=== PATIENT | female | born 1980 | race American Indian/Alaskan Native ===

== ENCOUNTER 2018-11-16 14:09 | Emergency (ER) | payer OTHER ==
[2018-11-16 14:14] VITALS: BP 118/79
--- NOTE | 2018-11-16 14:25 | Emergency Department Report ---
Chief Complaint: Abdominal Pain Stated Complaint: RT SIDE PAIN Time Seen by Provider: 11/16/18 14:24 - HPI History of Present Illness: r flank pain hx stones nausea lmp 11/08 rx none pcp none pmh/psh renal stent k stone vss nad mse completed - Exam Vital Signs: Vital Signs 11/16/18 14:13 Temperature 98.4 F Pulse Rate 104 H Respiratory 16 Rate Blood Pressure 118/79 [Right] O2 Sat by Pulse 99 Oximetry MSE screening note: Focused history and physical exam performed. Due to findings the following was ordered: ED Disposition for MSE Condition: Stable Instructions: Abdominal Pain (ED)
[2018-11-16 14:56] LABS: HCG Qualitative,Urine Negative (Negative)
[2018-11-16] MEDS ORDERED: ZOFRAN IV ONE (14:58)
[2018-11-16] MEDS ORDERED: TORADOL IV ONE (14:58)
[2018-11-16] MEDS ORDERED: NACL 0.9% 1000 ML 1,000 ML IV ONE (14:58)
[2018-11-16 15:00] LABS: Bilirubin,Urine NEG (Negative); Blood,Urine NEG (Negative); Color,Urine Yellow (Yellow); Mucus,Urine FEW /HPF; Protein,Urine <15 mg/dL mg/dL (Negative); WBC,Urine < 1.0 /HPF (0.0-6.0)
[2018-11-16 15:01] LABS: Basophils # (Auto) 0.1 K/mm3 (0.0-0.1); Basophils % (Auto) 0.8 % (0.0-1.8); Eosinophils # (Auto) 0.2 K/mm3 (0.0-0.4); Eosinophils % (Auto) 2.7 % (0.0-4.3); Lymphocytes # (Auto) 2.9 K/mm3 (1.2-5.4); Lymphocytes % (Auto) 36.6 % (13.4-35.0); Mean Corpuscular HGB Conc 34 % (30-34); Mean Corpuscular Volume 96 fl (79-97); Monocytes # (Auto) 0.5 K/mm3 (0.0-0.8); Monocytes % (Auto) 6.5 % (0.0-7.3); Platelet Count 319 K/mm3 (140-440); Red Blood Count 3.97 M/mm3 (3.65-5.03); Red Cell Distribution Width 13.6 % (13.2-15.2)
[2018-11-16 15:08] LABS: BUN/Creatinine Ratio 13; Blood Urea Nitrogen 9 mg/dL (7-17); Hemolysis Index 4
[2018-11-16] MEDS ORDERED: MORPHINE IV ONE (16:50)
--- NOTE | 2018-11-16 16:55 | Cat Scan Report ---
PROCEDURE: CT ABDOMEN PELVIS WO CON TECHNIQUE: CT examination of the abdomen without IV contrast CT examination of the pelvis without IV contrast HISTORY: right flank pain COMPARISONS: None FINDINGS: Lack of IV and oral contrast limits the examination. Examination is further limited by paucity of int ra-abdominal fat. No acute lung base finding. No acute fracture. Normal noncontrast appearance of the liver, gallbladde r, adrenals, pancreas, and spleen. Normal caliber abdominal aorta and IVC. Normal-appearing right kidney. No right hydronephrosis or right renal calculus. Obscured right ureter by adjacent structures. 3 mm nonobstructing left renal calculus. No left hydronephrosis. Left ureter obscured by adjacent str uctures. Intact anterior abdominal wall without evidence of hernia. No retroperitoneal adenopathy. No evidence of mesenteric mass. Normal-appearing stomach and duodenum. No small bowel distention in the abdomen and pelvis. No pelvic free fluid. Normal-appearing urinary bladder, anteverted uterus, and adnexa. Normal-appeari ng rectum and sigmoid colon. No gross ascites, free air, or colonic distention. Normal-appearing cecu m, terminal ileum, and retrocecal appendix. Prominent stool in the ascending and transverse colon may reflect proximal constipation. IMPRESSION: Prominent stool in ascending and transverse colon may reflect right colonic constipation Lack of IV contrast, oral contrast, and paucity of intra-abdominal fat limits the examination 3 mm nonobstructing left renal calculus. No evidence of right calculus or hydronephrosis in the visib le portion of the urinary tract This document is electronically signed by Dayron East MD., November 16 2018 04:53:45 PM ET
--- NOTE | 2018-11-16 17:24 | Emergency Department Report ---
ED Abdominal Pain HPI - General Chief Complaint: Abdominal Pain Stated Complaint: RT SIDE PAIN Time Seen by Provider: 11/16/18 14:24 Source: patient Mode of arrival: Ambulatory Limitations: No Limitations - History of Present Illness Initial Comments: Patient is a 38 year F Miller female who is complaining of severe right-sided flank pain that began earlier today. Patient has mild dysuria as well. Patient has a history of kidney stones and has had to undergo lithotripsy for renal stents several times. Patient has had some nausea vomiting. Patient states the pain is 8 out of 10 in severity. She denies any fever at this time. MD Complaint: flank pain Severity scale (0 -10): 5 - Related Data Previous Rx's Medication Instructions Recorded Last Taken Type Ketorolac [Toradol] 10 mg PO Q6H PRN #12 tablet 11/16/18 Unknown Rx Ondansetron [Zofran Odt] 4 mg PO Q8HR #10 tab.rapdis 11/16/18 Unknown Rx traMADol [Ultram] 50 mg PO Q6HR PRN #12 tablet 11/16/18 Unknown Rx Allergies Allergy/AdvReac Type Severity Reaction Status Date / Time No Known Allergies Allergy Unverified 11/16/18 14:23 ED Review of Systems ROS: Stated complaint: RT SIDE PAIN Other details as noted in HPI Comment: All other systems reviewed and negative ED Past Medical Hx - Past Medical History Previous Medical History?: Yes Additional medical history: kidney stones - Surgical History Past Surgical History?: Yes Additional Surgical History: lithotripsy. renal stents - Social History Smoking Status: Current Every Day Smoker Substance Use Type: Alcohol - Medications Home Medications: Home Medications Medication Instructions Recorded Confirmed Last Taken Type Ketorolac [Toradol] 10 mg PO Q6H PRN #12 tablet 11/16/18 Unknown Rx Ondansetron [Zofran Odt] 4 mg PO Q8HR #10 tab.rapdis 11/16/18 Unknown Rx traMADol [Ultram] 50 mg PO Q6HR PRN #12 tablet 11/16/18 Unknown Rx ED Physical Exam - General Limitations: No Limitations General appearance: alert, in no apparent distress (but uncomfortable secondary to pain) - Head Head exam: Present: atraumatic, normocephalic - Eye Eye exam: Present: normal appearance, PERRL, EOMI - ENT ENT exam: Present: mucous membranes moist - Neck Neck exam: Present: normal inspection - Respiratory Respiratory exam: Present: normal lung sounds bilaterally. Absent: respiratory distress, wheezes, rales, rhonchi, stridor - Cardiovascular Cardiovascular Exam: Present: regular rate, normal rhythm. Absent: systolic murmur, diastolic murmur, rubs, gallop - GI/Abdominal GI/Abdominal exam: Present: soft, tenderness (right flank), normal bowel sounds. Absent: distended, guarding, rebound, rigid - Extremities Exam Extremities exam: Present: normal inspection - Back Exam Back exam: Present: normal inspection, CVA tenderness (R) - Neurological Exam Neurological exam: Present: alert, oriented X3 - Psychiatric Psychiatric exam: Present: normal affect, normal mood - Skin Skin exam: Present: warm, dry, intact, normal color. Absent: rash ED Course Vital Signs 11/16/18 11/16/18 14:13 15:26 Temperature 98.4 F Pulse Rate 104 H Respiratory 16 18 Rate Blood Pressure 118/79 [Right] O2 Sat by Pulse 99 Oximetry ED Medical Decision Making - Lab Data Result diagrams: 11/16/18 14:36 11/16/18 14:36 Lab Results 11/16/18 11/16/18 11/16/18 Range/Units 14:36 14:36 14:47 WBC 7.9 (4.5-11.0) K/mm3 RBC 3.97 (3.65-5.03) M/mm3 Hgb 13.0 (10.1-14.3) gm/dl Hct 38.0 (30.3-42.9) % MCV 96 (79-97) fl MCH 33 H (28-32) pg MCHC 34 (30-34) % RDW 13.6 (13.2-15.2) % Plt Count 319 (140-440) K/mm3 Lymph % (Auto) 36.6 H (13.4-35.0) % [place] % (Auto) 6.5 (0.0-7.3) % Eos % (Auto) 2.7 (0.0-4.3) % Baso % (Auto) 0.8 (0.0-1.8) % Lymph # 2.9 (1.2-5.4) K/mm3 [place] # 0.5 (0.0-0.8) K/mm3 Eos # 0.2 (0.0-0.4) K/mm3 Baso # 0.1 (0.0-0.1) K/mm3 Seg Neutrophils % 53.4 (40.0-70.0) % Seg Neutrophils # 4.2 (1.8-7.7) K/mm3 Sodium 138 (137-145) mmol/L Potassium 4.7 (3.6-5.0) mmol/L Chloride 100.5 (98-107) mmol/L Carbon Dioxide 26 (22-30) mmol/L Anion Gap 16 mmol/L BUN 9 (7-17) mg/dL Creatinine 0.7 (0.7-1.2) mg/dL Estimated GFR > 60 ml/min BUN/Creatinine Ratio 13 % Glucose 92 (65-100) mg/dL Calcium 10.0 (8.4-10.2) mg/dL Urine Color Yellow (Yellow) Urine Turbidity Clear (Clear) Urine pH 6.0 (5.0-7.0) Ur Specific [place] 1.026 (1.003-1.030) Urine Protein <15 mg/dl (Negative) mg/dL Urine Glucose (UA) Neg (Negative) mg/dL Urine Ketones Tr (Negative) mg/dL Urine Blood Neg (Negative) Urine Nitrite Neg (Negative) Ur Reducing Substances Not Reportable Urine Bilirubin Neg (Negative) Urine Ictotest Not Reportable Urine Urobilinogen 2.0 (<2.0) mg/dL Ur Leukocyte Esterase Neg (Negative) Urine WBC (Auto) < 1.0 (0.0-6.0) /HPF Urine RBC (Auto) 12.0 (0.0-6.0) /HPF U Epithel Cells (Auto) 3.0 (0-13.0) /HPF Urine Mucus Few /HPF Urine HCG, Qual Negative (Negative) - Radiology Data [facility] [address] [place] [address] Cat Scan Report Signed Patient: JENY ARIAS MR#: [id number] : 1980 Acct:[id number] Age/Sex: 38 / F ADM Date: 11/16/18 Loc: ED Attending Dr: Ordering Physician: ARTHUR RED MD Date of Service: 11/16/18 Procedure(s): CT abdomen pelvis wo con Accession Number(s): [id number] cc: ARTHUR RED MD PROCEDURE: CT ABDOMEN PELVIS WO CON TECHNIQUE: CT examination of the abdomen without IV contrast CT examination of the pelvis without IV contrast HISTORY: right flank pain COMPARISONS: None FINDINGS: Lack of IV and oral contrast limits the examination. Examination is further limited by paucity of intra-abdominal fat. No acute lung base finding. No acute fracture. Normal noncontrast appearance of the liver, gallbladder, adrenals, pancreas, and spleen. Normal caliber abdominal aorta and IVC. Normal-appearing right kidney. No right hydronephrosis or right renal calculus. Obscured right ureter by adjacent structures. 3 mm nonobstructing left renal calculus. No left hydronephrosis. Left ureter obscured by adjacent structures. Intact anterior abdominal wall without evidence of hernia. No retroperitoneal adenopathy. No evidence of mesenteric mass. Normal-appearing stomach and duodenum. No small bowel distention in the abdomen and pelvis. No pelvic free fluid. Normal-appearing urinary bladder, anteverted uterus, and adnexa. Normal- appearing rectum and sigmoid colon. No gross ascites, free air, or colonic distention. Normal- appearing cecum, terminal ileum, and retrocecal appendix. Prominent stool in the ascending and transverse colon may reflect proximal constipation. IMPRESSION: Prominent stool in ascending and transverse colon may reflect right colonic constipation Lack of IV contrast, oral contrast, and paucity of intra-abdominal fat limits the examination 3 mm nonobstructing left renal calculus. No evidence of right calculus or hydronephrosis in the visible portion of the urinary tract This document is electronically signed by Dayron East MD., November 16 2018 04:53:45 PM ET Transcribed By: CASEY Dictated By: DAYRON EAST MD Electronically Authenticated By: DAYRON EAST MD Signed Date/Time: 11/16/181654 DD/ 54 TD/TT: 11/16/181554 - Medical Decision Making Patient does have a mild amount of hematuria present. No obstructing stone has been found. Patient's pain is resolving and she may have passed a stone prior to arrival. Patient be discharged home. Critical care attestation.: If time is entered above; I have spent that time in minutes in the direct care of this critically ill patient, excluding procedure time. ED Disposition Clinical Impression: Hematuria Qualifiers: Hematuria type: benign essential microscopic Qualified Code(s): R31.1 - Benign essential microscopic hematuria Disposition: - TO HOME OR SELFCARE Is pt being admited?: No Does the pt Need Aspirin: No Condition: Stable Instructions: Acute Hematuria (ED) Referrals: AMOL COLUNGA MD [Primary Care Provider] - 3-5 Days Time of Disposition: 17:24
== END 2018-11-16 17:43 | disposition home or self-care (01) ==
LOC: ED 14:09
DX: R30.0 Dysuria (principal); R11.2 Nausea with vomiting, unspecified; F17.200 Nicotine dependence, unspecified, uncomplicated; Z87.442 Personal history of urinary calculi
CPT/HCPCS: 36415; 74176; 80048; 81001; 81025; 85025; 96361; 96374; 96375; 99284; J1885; J2270; J2405; J7030

== ENCOUNTER 2020-02-21 10:57 | Emergency (ER) | payer SELFPAY ==
--- NOTE | 2020-02-21 12:18 | Event Note ---
ED Screening Note ED Screening Note: right lower abd pain began yesterday states hx of ovarian cysts but they have not given her problems in the past states she has pressure at end of urination no n/v/d no fever constipation x2 days PMHx ovarian cysts, nephrolithiasis PSHx: stone removal, x3 LNMP: 02/04/2020 This initial assessment/diagnostic orders/clinical plan/treatment(s) is/are subject to change based on patients health status, clinical progression and re- assessment by fellow clinical providers in the ED. Further treatment and workup at subsequent clinical providers discretion. Patient/guardian urged not to elope from the ED as their condition may be serious if not clinically assessed and managed. Initial orders include: labs, UA
[2020-02-21 14:15] LABS: Basophils # (Auto) 0.1 K/mm3 (0.0-0.1); Basophils % (Auto) 0.9 % (0.0-1.8); Eosinophils # (Auto) 0.5 K/mm3 (0.0-0.4); Eosinophils % (Auto) 4.9 % (0.0-4.3); Hematocrit 37.1 % (30.3-42.9); Hemoglobin 12.4 gm/dl (10.1-14.3); Lymphocytes # (Auto) 2.7 K/mm3 (1.2-5.4); Lymphocytes % (Auto) 27.7 % (13.4-35.0); Mean Corpuscular HGB Conc 34 % (30-34); Mean Corpuscular Volume 97 fl (79-97); Monocytes # (Auto) 0.6 K/mm3 (0.0-0.8); Monocytes % (Auto) 6.3 % (0.0-7.3); Platelet Count 292 K/mm3 (140-440); Red Blood Count 3.82 M/mm3 (3.65-5.03); Red Cell Distribution Width 13.9 % (13.2-15.2)
[2020-02-21 14:25] LABS: Alanine Aminotransferase 6 units/L (7-56); Albumin 4.4 g/dL (3.9-5); BUN/Creatinine Ratio 12; Blood Urea Nitrogen 7 mg/dL (7-17); Calcium 9.5 mg/dL (8.4-10.2); Hemolysis Index 10
[2020-02-21 15:44] LABS: Bilirubin,Urine NEG (Negative); Blood,Urine SM (Negative); Color,Urine Yellow (Yellow); Mucus,Urine FEW /HPF; Protein,Urine <15 mg/dL mg/dL (Negative); Urobilinogen,Urine < 2.0 mg/dL (<2.0)
[2020-02-21] MEDS ORDERED: MORPHINE 4 MG/1 ML INJ IV STA (16:01)
[2020-02-21] MEDS ORDERED: ONDANSETRON 4 MG/2 ML INJ IV STA (16:01)
[2020-02-21] MEDS ORDERED: SODIUM CHLORIDE 0.9% 1000 ML 1,000 ML IV ONE (16:01)
--- NOTE | 2020-02-21 16:10 | Emergency Department Report ---
<SARAH MADRIGAL - Last Filed: 02/21/20 16:05> ED Abdominal Pain HPI - General Chief Complaint: Abdominal Pain Stated Complaint: RT SIDE ABD PAIN Time Seen by Provider: 02/21/20 12:15 Source: patient Mode of arrival: Ambulatory Limitations: No Limitations - Related Data Previous Rx's Medication Instructions Recorded Last Taken Type Ketorolac [Toradol] 10 mg PO Q6H PRN #12 tablet 11/16/18 Unknown Rx traMADoL [Ultram] 50 mg PO Q6HR PRN #12 tablet 11/16/18 Unknown Rx Ketorolac [Toradol] 10 mg PO Q6H PRN #14 tablet 02/21/20 Unknown Rx Ondansetron [Zofran ODT TAB] 4 mg PO Q6HR PRN #15 tab.rapdis 02/21/20 Unknown Rx Allergies Allergy/AdvReac Type Severity Reaction Status Date / Time No Known Allergies Allergy Unverified 11/16/18 14:23 ED Review of Systems Comment: All other systems reviewed and negative ED Past Medical Hx - Past Medical History Previous Medical History?: Yes Additional medical history: kidney stones - Surgical History Past Surgical History?: Yes Additional Surgical History: lithotripsy. renal stents. C section - Social History Smoking Status: Never Smoker Substance Use Type: None - Medications Home Medications: Home Medications Medication Instructions Recorded Confirmed Last Taken Type Ketorolac [Toradol] 10 mg PO Q6H PRN #12 tablet 11/16/18 Unknown Rx traMADoL [Ultram] 50 mg PO Q6HR PRN #12 tablet 11/16/18 Unknown Rx Ketorolac [Toradol] 10 mg PO Q6H PRN #14 tablet 02/21/20 Unknown Rx Ondansetron [Zofran ODT TAB] 4 mg PO Q6HR PRN #15 tab.rapdis 02/21/20 Unknown Rx ED Physical Exam - General Limitations: No Limitations General appearance: alert, in no apparent distress - Head Head exam: Present: atraumatic, normocephalic - Eye Eye exam: Present: normal appearance, PERRL, EOMI Pupils: Present: normal accommodation - ENT ENT exam: Present: mucous membranes moist - Neck Neck exam: Present: normal inspection - Respiratory Respiratory exam: Present: normal lung sounds bilaterally. Absent: respiratory distress - Cardiovascular Cardiovascular Exam: Present: regular rate, normal rhythm. Absent: systolic murmur, diastolic murmur, rubs, gallop - GI/Abdominal GI/Abdominal exam: Present: soft, normal bowel sounds - Extremities Exam Extremities exam: Present: normal inspection - Back Exam Back exam: Present: normal inspection - Neurological Exam Neurological exam: Present: alert, oriented X3 - Psychiatric Psychiatric exam: Present: normal affect, normal mood - Skin Skin exam: Present: warm, dry, intact, normal color. Absent: rash ED Medical Decision Making - Lab Data Result diagrams: 02/21/20 13:34 02/21/20 13:34 Lab Results 02/21/20 02/21/20 02/21/20 Range/Units 13:34 13:34 13:34 WBC 9.8 (4.5-11.0) K/mm3 RBC 3.82 (3.65-5.03) M/mm3 Hgb 12.4 (10.1-14.3) gm/dl Hct 37.1 (30.3-42.9) % MCV 97 (79-97) fl MCH 33 H (28-32) pg MCHC 34 (30-34) % RDW 13.9 (13.2-15.2) % Plt Count 292 (140-440) K/mm3 Lymph % (Auto) 27.7 (13.4-35.0) % [place] % (Auto) 6.3 (0.0-7.3) % Eos % (Auto) 4.9 H (0.0-4.3) % Baso % (Auto) 0.9 (0.0-1.8) % Lymph # 2.7 (1.2-5.4) K/mm3 [place] # 0.6 (0.0-0.8) K/mm3 Eos # 0.5 H (0.0-0.4) K/mm3 Baso # 0.1 (0.0-0.1) K/mm3 Seg Neutrophils % 60.2 (40.0-70.0) % Seg Neutrophils # 5.9 (1.8-7.7) K/mm3 Sodium 136 L (137-145) mmol/L Potassium 3.9 (3.6-5.0) mmol/L Chloride 102.1 (98-107) mmol/L Carbon Dioxide 21 L (22-30) mmol/L Anion Gap 17 mmol/L BUN 7 (7-17) mg/dL Creatinine 0.6 L (0.7-1.2) mg/dL Estimated GFR > 60 ml/min BUN/Creatinine Ratio 12 % Glucose 92 (65-100) mg/dL Calcium 9.5 (8.4-10.2) mg/dL Total Bilirubin 0.20 (0.1-1.2) mg/dL AST 12 (5-40) units/L ALT 6 L (7-56) units/L Alkaline Phosphatase 55 (35-129) units/L Total Protein 7.8 (6.3-8.2) g/dL Albumin 4.4 (3.9-5) g/dL Albumin/Globulin Ratio 1.3 % Lipase 18 (13-60) units/L HCG, Qual Negative (Negative) Urine Color (Yellow) Urine Turbidity (Clear) Urine pH (5.0-7.0) Ur Specific [place] (1.003-1.030) Urine Protein (Negative) mg/dL Urine Glucose (UA) (Negative) mg/dL Urine Ketones (Negative) mg/dL Urine Blood (Negative) Urine Nitrite (Negative) Urine Bilirubin (Negative) Urine Urobilinogen (<2.0) mg/dL Ur Leukocyte Esterase (Negative) Urine WBC (Auto) (0.0-6.0) /HPF Urine RBC (Auto) (0.0-6.0) /HPF U Epithel Cells (Auto) (0-13.0) /HPF Urine Mucus /HPF 07/10/20 Range/Units Unknown WBC (4.5-11.0) K/mm3 RBC (3.65-5.03) M/mm3 Hgb (10.1-14.3) gm/dl Hct (30.3-42.9) % MCV (79-97) fl MCH (28-32) pg MCHC (30-34) % RDW (13.2-15.2) % Plt Count (140-440) K/mm3 Lymph % (Auto) (13.4-35.0) % [place] % (Auto) (0.0-7.3) % Eos % (Auto) (0.0-4.3) % Baso % (Auto) (0.0-1.8) % Lymph # (1.2-5.4) K/mm3 [place] # (0.0-0.8) K/mm3 Eos # (0.0-0.4) K/mm3 Baso # (0.0-0.1) K/mm3 Seg Neutrophils % (40.0-70.0) % Seg Neutrophils # (1.8-7.7) K/mm3 Sodium (137-145) mmol/L Potassium (3.6-5.0) mmol/L Chloride (98-107) mmol/L Carbon Dioxide (22-30) mmol/L Anion Gap mmol/L BUN (7-17) mg/dL Creatinine (0.7-1.2) mg/dL Estimated GFR ml/min BUN/Creatinine Ratio % Glucose (65-100) mg/dL Calcium (8.4-10.2) mg/dL Total Bilirubin (0.1-1.2) mg/dL AST (5-40) units/L ALT (7-56) units/L Alkaline Phosphatase (35-129) units/L Total Protein (6.3-8.2) g/dL Albumin (3.9-5) g/dL Albumin/Globulin Ratio % Lipase (13-60) units/L HCG, Qual (Negative) Urine Color Yellow (Yellow) Urine Turbidity Clear (Clear) Urine pH 6.0 (5.0-7.0) Ur Specific [place] 1.017 (1.003-1.030) Urine Protein <15 mg/dl (Negative) mg/dL Urine Glucose (UA) Neg (Negative) mg/dL Urine Ketones Neg (Negative) mg/dL Urine Blood Sm (Negative) Urine Nitrite Neg (Negative) Urine Bilirubin Neg (Negative) Urine Urobilinogen < 2.0 (<2.0) mg/dL Ur Leukocyte Esterase Neg (Negative) Urine WBC (Auto) 1.0 (0.0-6.0) /HPF Urine RBC (Auto) 4.0 (0.0-6.0) /HPF U Epithel Cells (Auto) 4.0 (0-13.0) /HPF Urine Mucus Few /HPF - Radiology Data Radiology results: report reviewed [facility] [address] [place] [address] Cat Scan Report Signed Patient: JENY ARIAS MR#: [id number] : 1980 Acct:[id number] Age/Sex: 40 / F ADM Date: 02/21/20 Loc: ED Attending Dr: Ordering Physician: ZULEIKA MULLINS Date of Service: 02/21/20 Procedure(s): CT abdomen pelvis w con Accession Number(s): [id number] cc: ZULEIKA MULLINS CT ABDOMEN AND PELVIS WITH CONTRAST HISTORY: Right lower abdominal pain. COMPARISON: Prior CT on 11/16/2018. TECHNIQUE: Routine abdominal and pelvic CT exam performed following intravenous contrast administration. The patient received 100 mL Omnip[address] 350. All CT scans at this location are performed using CT dose reduction for ALARA by means of automated exposure cont rol. FINDINGS: CT ABDOMEN: Lung Bases: No significant abnormality. Liver: No significant abnormality. Biliary: No significant abnormality. Spleen: No significant abnormality. Unenlarged. Pancreas: No significant abnormality. Adrenals: No significant abnormality. Kidneys: There are some small nonobstructing stones in left kidney measuring up to 3 mm. There is no hydronephrosis. Kidneys otherwise appear normal. Lymphatics: No lymphadenopathy. Vasculature: No significant abnormality. Bowel/Peritoneum: No significant abnormality. No free air. No free fluid. Normal appendix. CT PELVIC: : There is a 3.5 cm right ovarian cyst. Uterus and ovaries otherwise appear normal. Lymphatics: No lymphadenopathy. Osseous Structures: No aggressive appearing osseous lesions. Additional Findings: None IMPRESSION: 1. No acute findings. 2. A 3.5 cm right ovarian cyst is noted. 3. Nonobstructing left intrarenal stones. Signer Name: Jason Tristan MD Signed: 02/21/2020 5:19 PM Workstation Name: [id number] Transcribed By: LAINA Dictated By: Jason Tristan MD Electronically Authenticated By: Jason Tristan MD Signed Date/Time: 02/21/201718 DD/ 15 TD/TT: ED Disposition Clinical Impression: Right ovarian cyst Abdominal pain Qualifiers: Abdominal location: lower abdomen, unspecified Qualified Code(s): R10.30 - Lower abdominal pain, unspecified Disposition: DC-01 TO HOME OR SELFCARE Condition: Stable Instructions: Abdominal Pain (ED), Ovarian Cyst (ED) Additional Instructions: Follow-up with your [facility] physician in 2 to 3 days for reevaluation. Return to the ED immediately if symptoms get worse. Prescriptions: Ketorolac [Toradol] 10 mg PO Q6H PRN #14 tablet PRN Reason: Pain Ondansetron [Zofran ODT TAB] 4 mg PO Q6HR PRN #15 tab.rapdis PRN Reason: Nausea Referrals: [facility] [Provider Group] - 3-5 Days [facility] [Provider Group] - 3-5 Days [facility], [Primary Care Provider] - 3-5 Days Print Language: VIETNAMESE <JENNIFER YOUNG - Last Filed: 02/21/20 20:29> ED Review of Systems ROS: Stated complaint: RT SIDE ABD PAIN Other details as noted in HPI ED Course Vital Signs 02/21/20 02/21/20 02/21/20 11:00 16:24 17:56 Temperature 98.4 F Pulse Rate 93 H Respiratory 18 18 18 Rate Blood Pressure 120/75 Blood Pressure [Left] O2 Sat by Pulse 100 Oximetry 02/21/20 02/21/20 02/21/20 18:26 18:52 20:09 Temperature 98.4 F Pulse Rate 82 Respiratory 18 18 18 Rate Blood Pressure Blood Pressure 100/66 [Left] O2 Sat by Pulse 99 100 Oximetry ED Medical Decision Making - Lab Data Result diagrams: 02/21/20 13:34 02/21/20 13:34 - Radiology Data Findings [facility] [address] [place] [id number] Ultrasound Report Signed Patient: JENY ARIAS MR#: [id number] : 1980 Acct:[id number] Age/Sex: 40 / F ADM Date: 02/21/20 Loc: ED Attending Dr: Ordering Physician: ZULEIKA MULLINS Date of Service: 02/21/20 Procedure(s): US pelvic complete Accession Number(s): [id number] cc: ZULEIKA MULLINS ULTRASOUND PELVIS, COMPLETE INDICATION: Right lower quadrant pain COMPARISON: CT abdomen/pelvis performed earlier today.. FINDINGS: Uterus: No significant abnormality. Uterus measures 8.3 x 4.2 x 3.9 cm. No focal uterine mass noted. Endometrial echo complex measures 7mm. Right ovary: The right ovary contains a hypoechoic mass measuring 3.4 x 2.5 cm. There are numerous internal echoes and probable internal septations within the mass.. Left ovary: No significant abnormality. Left ovary has a normal appearance and size. Additional findings: There is no free fluid in the pelvis. Urinary bladder is unremarkable. IMPRESSION: 1. 3.4 cm complex mass within the right ovary. I suspect this is a hemorrhagic cyst based on appearance. The appearance does not suggest ovarian torsion. Short-term follow- up ultrasound is recommended to ensure mass resolves and/or regresses.. 2. The uterus and left ovary are unremarkable. Signer Name: Maria Antonia Richter MD Signed: 02/21/2020 8:09 PM Workstation Name: [id number] Transcribed By: Dictated By: Maria Antonia Richter MD Electronically Authenticated By: Maria Antonia Richter MD Signed Date/Time: 02/21/202008 DD/ 04 TD/TT: - Medical Decision Making The ultrasound report reviewed, the abdomen pelvis CT scan with contrast report was reviewed. Lab test results also reviewed. Patient treated for pain. Patient was discharged as per Teodoro Farzana Cristino's printed discharge instructions. Patient advised to follow-up with her [facility] physician in 3 to 5 days for reevaluation or return to the ED immediately if symptoms get worse. - Differential Diagnosis abdominal pain; Ovarian cyst, UTI; ; Fibroids; kidney stones Critical care attestation.: If time is entered above; I have spent that time in minutes in the direct care of this critically ill patient, excluding procedure time. ED Disposition Is pt being admited?: No Does the pt Need Aspirin: No Time of Disposition: 20:27
--- NOTE | 2020-02-21 17:23 | Cat Scan Report ---
CT ABDOMEN AND PELVIS WITH CONTRAST HISTORY: Right lower abdominal pain. COMPARISON: Prior CT on 11/16/2018. TECHNIQUE: Routine abdominal and pelvic CT exam performed following intravenous contrast administrat ion. The patient received 100 mL Omnip[address] 350. All CT scans at this location are performed using CT dose reduction for ALARA by means of automated exposure control. FINDINGS: CT ABDOMEN: Lung Bases: No significant abnormality. Liver: No significant abnormality. Biliary: No significant abnormality. Spleen: No significant abnormality. Unenlarged. Pancreas: No significant abnormality. Adrenals: No significant abnormality. Kidneys: There are some small nonobstructing stones in left kidney measuring up to 3 mm. There is no hydronephrosis. Kidneys otherwise appear normal. Lymphatics: No lymphadenopathy. Vasculature: No significant abnormality. Bowel/Peritoneum: No significant abnormality. No free air. No free fluid. Normal appendix. CT PELVIC: : There is a 3.5 cm right ovarian cyst. Uterus and ovaries otherwise appear normal. Lymphatics: No lymphadenopathy. Osseous Structures: No aggressive appearing osseous lesions. Additional Findings: None IMPRESSION: 1. No acute findings. 2. A 3.5 cm right ovarian cyst is noted. 3. Nonobstructing left intrarenal stones. Signer Name: Jason Tristan MD Signed: 02/21/2020 5:19 PM Workstation Name: [id number]
[2020-02-21] MEDS ORDERED: KETOROLAC 30 MG/1 ML INJ IV ONE (17:52)
[2020-02-21 20:11] VITALS: BP 100/66
--- NOTE | 2020-02-21 20:13 | Ultrasound Report ---
ULTRASOUND PELVIS, COMPLETE INDICATION: Right lower quadrant pain COMPARISON: CT abdomen/pelvis performed earlier today.. FINDINGS: Uterus: No significant abnormality. Uterus measures 8.3 x 4.2 x 3.9 cm. No focal uterine mass noted. Endometrial echo complex measures 7mm. Right ovary: The right ovary contains a hypoechoic mass measuring 3.4 x 2.5 cm. There are numerous in ternal echoes and probable internal septations within the mass.. Left ovary: No significant abnormality. Left ovary has a normal appearance and size. Additional findings: There is no free fluid in the pelvis. Urinary bladder is unremarkable. IMPRESSION: 1. 3.4 cm complex mass within the right ovary. I suspect this is a hemorrhagic cyst based on appearan ce. The appearance does not suggest ovarian torsion. Short-term follow-up ultrasound is recommended t o ensure mass resolves and/or regresses.. 2. The uterus and left ovary are unremarkable. Signer Name: Maria Antonia Richter MD Signed: 02/21/2020 8:09 PM Workstation Name: [id number]
[2020-02-21] MEDS ORDERED: MORPHINE 2 MG/1 ML INJ IV ONE (20:22)
[2020-02-21] MEDS ORDERED: diphenhydrAMINE 50 MG/ML VIAL IV ONE (20:22)
[2020-02-21] MEDS ORDERED: MORPHINE 2 MG/1 ML INJ ONE (20:25)
[2020-02-21] MEDS ORDERED: diphenhydrAMINE 50 MG/ML VIAL ONE (20:25)
== END 2020-02-21 20:35 | disposition home or self-care (01) ==
LOC: ED 10:57
DX: N83.291 Other ovarian cyst, right side (principal); Z98.890 Other specified postprocedural states; Z79.899 Other long term (current) drug therapy
CPT/HCPCS: 36415; 74177; 76856; 80053; 81001; 83690; 84703; 85025; 96374; 96375; 96376; 99284; J1200; J1885; J2270; J2405; J7030; Q9967

== ENCOUNTER 2021-01-05 10:37 | Emergency (ER) | payer SELFPAY ==
[2021-01-05 13:21] LABS: Basophils # (Auto) 0.1 K/mm3 (0.0-0.1); Basophils % (Auto) 1.1 % (0.0-1.8); Eosinophils # (Auto) 0.4 K/mm3 (0.0-0.4); Eosinophils % (Auto) 4.5 % (0.0-4.3); Hematocrit 35.7 % (30.3-42.9); Hemoglobin 12.3 gm/dl (10.1-14.3); Lymphocytes # (Auto) 2.9 K/mm3 (1.2-5.4); Lymphocytes % (Auto) 30.7 % (13.4-35.0); Mean Corpuscular HGB Conc 34 % (30-34); Mean Corpuscular Volume 97 fl (79-97); Monocytes # (Auto) 0.6 K/mm3 (0.0-0.8); Monocytes % (Auto) 6.7 % (0.0-7.3); Platelet Count 283 K/mm3 (140-440); Red Blood Count 3.68 M/mm3 (3.65-5.03); Red Cell Distribution Width 14.2 % (13.2-15.2)
[2021-01-05 13:43] LABS: Alanine Aminotransferase 7 units/L (7-56); Albumin 4.3 g/dL (3.9-5); Blood Urea Nitrogen 12 mg/dL (7-17); Calcium 9.2 mg/dL (8.4-10.2); Hemolysis Index 1
[2021-01-05 13:56] LABS: BUN/Creatinine Ratio 17
[2021-01-05] MEDS ORDERED: MORPHINE 4 MG/1 ML INJ IV ONE (14:47)
[2021-01-05] MEDS ORDERED: SODIUM CHLORIDE 0.9% 1000 ML 1,000 ML IV ONE (14:47)
[2021-01-05] MEDS ORDERED: ONDANSETRON 4 MG/2 ML INJ IV ONE (14:47)
--- NOTE | 2021-01-05 14:47 | Emergency Department Report ---
ED General Adult HPI - General Chief complaint: Abdominal Pain Stated complaint: POSS KIDNEY STONES Time Seen by Provider: 01/05/21 14:13 Source: patient Mode of arrival: Wheelchair Limitations: No Limitations - History of Present Illness Initial comments: 41-year-old -[place] female patient presents with complaints of sudden onset of right flank pain 2 days ago. Pain worsened today with nausea and vomiting per patient. She reports history of recurrent kidney stones that have required surgical intervention 8 times. She denies any hematemesis/coffee- ground emesis, chest pain, shortness of breath, fever/chills/sweats, urinary symptoms, or stool changes. No other past medical history per patient. She rates her current pain as a 10/10 in severity. -: Sudden Radiation: abdomen Severity scale (0 -10): 10 - Related Data Previous Rx's Medication Instructions Recorded Last Taken Type Acetaminophen/Codeine [Tylenol 1 tab PO Q6H PRN #15 tab 01/05/21 Unknown Rx /Codeine # 3 tab] Ondansetron [Zofran Odt] 4 mg PO Q8HR PRN #14 tab.rapdis 01/05/21 Unknown Rx Tamsulosin [Flomax] 0.4 mg PO QDAY PRN #7 cap 01/05/21 Unknown Rx Allergies Allergy/AdvReac Type Severity Reaction Status Date / Time No Known Allergies Allergy Unverified 11/16/18 14:23 ED Review of Systems ROS: Stated complaint: POSS KIDNEY STONES Other details as noted in HPI Constitutional: denies: chills, diaphoresis, fever, malaise Respiratory: denies: cough, shortness of breath Cardiovascular: denies: chest pain Gastrointestinal: as per HPI, nausea, vomiting Genitourinary: denies: urgency, dysuria, frequency, hematuria, discharge ED Past Medical Hx - Past Medical History Previous Medical History?: Yes Hx Kidney Stones: Yes Additional medical history: kidney stones - Surgical History Additional Surgical History: lithotripsy. renal stents. C section - Social History Smoking Status: Current Every Day Smoker Substance Use Type: None - Medications Home Medications: Home Medications Medication Instructions Recorded Confirmed Last Taken Type Acetaminophen/Codeine [Tylenol 1 tab PO Q6H PRN #15 tab 01/05/21 Unknown Rx /Codeine # 3 tab] Ondansetron [Zofran Odt] 4 mg PO Q8HR PRN #14 tab.rapdis 01/05/21 Unknown Rx Tamsulosin [Flomax] 0.4 mg PO QDAY PRN #7 cap 01/05/21 Unknown Rx ED Physical Exam - General Limitations: No Limitations General appearance: alert, in no apparent distress (pt does appear uncomfortable, holding her left flank area ) - Head Head exam: Present: atraumatic, normocephalic - Eye Eye exam: Present: normal appearance - Neck Neck exam: Present: normal inspection - Respiratory Respiratory exam: Absent: respiratory distress - Cardiovascular Cardiovascular Exam: Present: regular rate - GI/Abdominal GI/Abdominal exam: Present: soft, tenderness (left abdominal tenderness to palpation noted ), normal bowel sounds. Absent: distended, guarding, rebound, rigid - Back Exam Back exam: Present: CVA tenderness (L) - Neurological Exam Neurological exam: Present: alert, oriented X3, normal gait - Psychiatric Psychiatric exam: Present: normal affect, normal mood ED Course Vital Signs 01/05/21 01/05/21 11:28 16:56 Temperature 98 F 98.2 F Pulse Rate 86 68 Respiratory 18 18 Rate Blood Pressure 95/59 103/65 [Right] O2 Sat by Pulse 99 100 Oximetry ED Medical Decision Making - Lab Data Result diagrams: 01/05/21 13:07 01/05/21 13:07 Lab Results 01/05/21 01/05/21 01/05/21 Range/Units 13:07 13:07 14:36 WBC 9.6 (4.5-11.0) K/mm3 RBC 3.68 (3.65-5.03) M/mm3 Hgb 12.3 (10.1-14.3) gm/dl Hct 35.7 (30.3-42.9) % MCV 97 (79-97) fl MCH 33 H (28-32) pg MCHC 34 (30-34) % RDW 14.2 (13.2-15.2) % Plt Count 283 (140-440) K/mm3 Lymph % (Auto) 30.7 (13.4-35.0) % [place] % (Auto) 6.7 (0.0-7.3) % Eos % (Auto) 4.5 H (0.0-4.3) % Baso % (Auto) 1.1 (0.0-1.8) % Lymph # (Auto) 2.9 (1.2-5.4) K/mm3 [place] # (Auto) 0.6 (0.0-0.8) K/mm3 Eos # (Auto) 0.4 (0.0-0.4) K/mm3 Baso # (Auto) 0.1 (0.0-0.1) K/mm3 Seg Neutrophils % 57.0 (40.0-70.0) % Seg Neutrophils # 5.5 (1.8-7.7) K/mm3 Sodium 135 L (137-145) mmol/L Potassium 4.2 (3.6-5.0) mmol/L Chloride 102.2 (98-107) mmol/L Carbon Dioxide 22 (22-30) mmol/L Anion Gap 15 mmol/L BUN 12 (7-17) mg/dL Creatinine 0.7 (0.6-1.2) mg/dL Estimated GFR > 60 ml/min BUN/Creatinine Ratio 17 % Glucose 87 (65-100) mg/dL Calcium 9.2 (8.4-10.2) mg/dL Total Bilirubin 0.30 (0.1-1.2) mg/dL AST 13 (5-40) units/L ALT 7 (7-56) units/L Alkaline Phosphatase 52 (35-129) units/L Total Protein 8.1 (6.3-8.2) g/dL Albumin 4.3 (3.9-5) g/dL Albumin/Globulin Ratio 1.1 % Lipase 31 (13-60) units/L Urine Color Yellow (Yellow) Urine Turbidity Slightly-cloudy (Clear) Urine pH 5.0 (5.0-7.0) Ur Specific [place] 1.027 (1.003-1.030) Urine Protein 30 mg/dl (Negative) mg/dL Urine Glucose (UA) Neg (Negative) mg/dL Urine Ketones Tr (Negative) mg/dL Urine Blood Mod (Negative) Urine Nitrite Neg (Negative) Urine Bilirubin Neg (Negative) Urine Urobilinogen < 2.0 (<2.0) mg/dL Ur Leukocyte Esterase Neg (Negative) Urine WBC (Auto) 3.0 (0.0-6.0) /HPF Urine RBC (Auto) 16.0 (0.0-6.0) /HPF U Epithel Cells (Auto) 4.0 (0-13.0) /HPF Urine Mucus Few /HPF - EKG Data EKG shows normal: sinus rhythm Rate: normal - EKG Data Interpretation: normal EKG - Radiology Data Radiology results: report reviewed CT ABDOMEN AND PELVIS WITHOUT CONTRAST INDICATION / CLINICAL INFORMATION: left flank pain, hx of kidney stones. TECHNIQUE: Axial CT images were obtained through the abdomen and pelvis without IV contrast. All CT scans at this location are performed using CT dose reduction for ALARA by means of automated exposure control. COMPARISON: 02/21/2020 FINDINGS: LOWER CHEST: No significant abnormality. LIVER: No significant abnormality. GALLBLADDER: No significant abnormality. BILE DUCTS: No significant abnormality. PANCREAS: No significant abnormality. SPLEEN: No significant abnormality. ADRENALS: No significant abnormality. RIGHT KIDNEY / URETER: No significant abnormality. LEFT KIDNEY / URETER: 3 mm calcified stone left pelvicalyceal system. There is a 4 mm calcification in the left retroperitoneum (series 2 image 77) which cannot definitively be placed in the ureter secondary to patient's body habitus. No hydronephrosis or fat stranding is noted of the left collecting system. STOMACH / SMALL BOWEL: No significant abnormality. COLON: No significant abnormality. APPENDIX: No significant abnormality. PERITONEUM: No free fluid. No free air. No fluid collection. LYMPH NODES: No significant adenopathy. AORTA / ARTERIES: No significant abnormality. IVC / VEINS: No significant abnormality. URINARY BLADDER: No significant abnormality. Specifically no evidence of calcified stone burden. REPRODUCTIVE ORGANS: No significant abnormality. ADDITIONAL FINDINGS: None. SKELETAL SYSTEM: No significant abnormality. No aggressive osseous lesion. IMPRESSION: 1. 3 mm calcified stone left pelvicalyceal system. There is an additional 4 mm calcification in the left retroperitoneum which cannot definitively be placed in the ureter secondary to patient body habitus. There is no evidence of hydronephrosis or fat stranding. This calcification in the left retroperitoneum was not present on the prior exam 02/21/2020 and could represent a ureteral stone versus retroperitoneal phlebolith. If follow-up imaging is clinically indicated, delayed contrast phase would be helpful to determine exact location. 2. No right-sided nephrolithiasis or hydronephrosis. - Medical Decision Making 41-year-old -[place] female patient presents with complaints of sudden onset of right flank pain 2 days ago. Pain worsened today with nausea and vomiting per patient. She reports history of recurrent kidney stones that have required surgical intervention 8 times. She denies any hematemesis/coffee- ground emesis, chest pain, shortness of breath, fever/chills/sweats, urinary symptoms, or stool changes. No other past medical history per patient. She rates her current pain as a 10/[address] shows possible 4 mm left ureteral stone. Will treat as such expectantly with Flomax and pain control. Patient states she will follow up with her urologist in 3 days. Discussed signs and symptoms that should prompt immediate return to the emergency department in detail with patient who verbalizes understanding. Her vitals are within normal limits, she is well-appearing, she is stable for discharge home. Critical care attestation.: If time is entered above; I have spent that time in minutes in the direct care of this critically ill patient, excluding procedure time. ED Disposition Clinical Impression: Kidney stone Disposition: DC- TO HOME OR SELFCARE Is pt being admited?: No Condition: Stable Instructions: Low-Purine Eating Plan, Kidney Stones, Abdominal Pain (ED) Prescriptions: Tamsulosin [Flomax] 0.4 mg PO QDAY PRN #7 cap PRN Reason: kidney stone passage Acetaminophen/Codeine [Tylenol /Codeine # 3 tab] 1 tab PO Q6H PRN #15 tab PRN Reason: Pain , Severe (7-10) Ondansetron [Zofran Odt] 4 mg PO Q8HR PRN #14 tab.rapdis PRN Reason: Nausea Referrals: ARUN MÁRQUEZ MD [Staff Physician] - 3-5 Days Forms: Work/School Release Form(ED)
[2021-01-05 14:51] LABS: Bilirubin,Urine NEG (Negative); Blood,Urine MOD (Negative); Color,Urine Yellow (Yellow); Mucus,Urine FEW /HPF; Urobilinogen,Urine < 2.0 mg/dL (<2.0)
[2021-01-05] MEDS ORDERED: KETOROLAC 60 MG/2 ML INJ IM ONE (16:19)
--- NOTE | 2021-01-05 16:27 | Cat Scan Report ---
CT ABDOMEN AND PELVIS WITHOUT CONTRAST INDICATION / CLINICAL INFORMATION: left flank pain, hx of kidney stones. TECHNIQUE: Axial CT images were obtained through the abdomen and pelvis without IV contrast. All CT scans at [facility] location are performed using CT dose reduction for ALARA by means of automated exposure control. COMPARISON: 02/21/2020 FINDINGS: LOWER CHEST: No significant abnormality. LIVER: No significant abnormality. GALLBLADDER: No significant abnormality. BILE DUCTS: No significant abnormality. PANCREAS: No significant abnormality. SPLEEN: No significant abnormality. ADRENALS: No significant abnormality. RIGHT KIDNEY / URETER: No significant abnormality. LEFT KIDNEY / URETER: 3 mm calcified stone left pelvicalyceal system. There is a 4 mm calcification i n the left retroperitoneum (series 2 image 77) which cannot definitively be placed in the ureter seco ndary to patient's body habitus. No hydronephrosis or fat stranding is noted of the left collecting s ystem. STOMACH / SMALL BOWEL: No significant abnormality. COLON: No significant abnormality. APPENDIX: No significant abnormality. PERITONEUM: No free fluid. No free air. No fluid collection. LYMPH NODES: No significant adenopathy. AORTA / ARTERIES: No significant abnormality. IVC / VEINS: No significant abnormality. URINARY BLADDER: No significant abnormality. Specifically no evidence of calcified stone burden. REPRODUCTIVE ORGANS: No significant abnormality. ADDITIONAL FINDINGS: None. SKELETAL SYSTEM: No significant abnormality. No aggressive osseous lesion. IMPRESSION: 1. 3 mm calcified stone left pelvicalyceal system. There is an additional 4 mm calcification in the l eft retroperitoneum which cannot definitively be placed in the ureter secondary to patient body habit us. There is no evidence of hydronephrosis or fat stranding. This calcification in the left retroperi toneum was not present on the prior exam 02/21/2020 and could represent a ureteral stone versus retrop eritoneal phlebolith. If follow-up imaging is clinically indicated, delayed contrast phase would be h elpful to determine exact location. 2. No right-sided nephrolithiasis or hydronephrosis. Signer Name: Vito Silvestre MD Signed: 01/05/2021 4:22 PM Workstation Name: [id number]
[2021-01-05] MEDS ORDERED: KETOROLAC 30 MG/1 ML INJ IV ONE (16:56)
[2021-01-05 16:57] VITALS: BP 103/65
== END 2021-01-05 17:34 | disposition home or self-care (01) ==
LOC: ED 10:37
DX: N20.0 Calculus of kidney (principal); F17.200 Nicotine dependence, unspecified, uncomplicated; Z98.890 Other specified postprocedural states; Z79.899 Other long term (current) drug therapy
CPT/HCPCS: 36415; 74176; 80053; 81001; 83690; 85025; 96361; 96374; 96375; 99284; J1885; J2270; J2405; J7030

== ENCOUNTER 2021-02-26 16:54 | Emergency (ER) | payer SELFPAY | END 2021-02-26 19:23 | LOC: ED 16:54 | DX: Z00.8 Encounter for other general examination (principal); Z53.21 Procedure and treatment not carried out due to patient leaving prior to being seen by health care provider ==